=== PATIENT | female | born 1950 | race African-American/Black ===

== ENCOUNTER 2016-09-05 12:57 | Emergency (ER) | payer OTHER ==
[2016-09-05 13:09] VITALS: BMI 21.2
--- NOTE | 2016-09-05 13:34 | PDOC ---
History of Present Illness - General History Source: Patient Exam Limitations: No Limitations - History of Present Illness Initial Comments: 09/05/16 13:50 The patient is a 66-year-old woman with a significant past medical history of asthma and seizure disorder who presents to the emergency department via walk- in for further evaluation of generalized weakness. Patient was in this ED, last night, for evaluation of possible seizure. She admits she did not take her Keppra in order to participate in the festivities. Patient was ultimately noted to be intoxicated (OH level of 252). Patient was noted to withdraw her own IV and was restrained to her stretcher. Patient presents today, as she states she feels generally weak and lightheaded. <Pratibha Ragland - Last Filed: 09/05/16 14:45> <Ez Stevens - Last Filed: 09/05/16 15:59> - General Chief Complaint: Lightheaded Stated Complaint: DIZZINESS Time Seen by Provider: 09/05/16 13:34 Past History <Pratibha Ragland - Last Filed: 09/05/16 14:45> - Past Medical History Asthma: Yes Seizures: Yes - Psycho/Social/Smoking Cessation Hx Anxiety: No Suicidal Ideation: No Smoking Status: No Smoking History: Never smoked Have you smoked in the past 12 months: No Number of Cigarettes Smoked Daily: 0 Hx Alcohol Use: No Drug/Substance Use Hx: No Substance Use Type: None Hx Substance Use Treatment: No <Ez Stevens - Last Filed: 09/05/16 15:59> - Past Medical History Allergies/Adverse Reactions: Allergies Allergy/AdvReac Type Severity Reaction Status Date / Time No Known Allergies Allergy Verified 09/05/16 13:08 Home Medications: Ambulatory Orders Docusate Sodium [Colace -] 100 mg PO BID PRN #60 capsule 07/20/15 Levetiracetam [Keppra -] 500 mg PO BID #60 tablet 07/19/16 Methimazole [Tapazole -] 5 mg PO DAILY #30 tablet 07/29/16 Thiamine HCl [Vitamin B1 -] 100 mg PO BID #60 tablet 07/29/16 Review of Systems - Review of Systems Able to Perform ROS?: Yes Comments:: 09/05/16 13:50 GENERAL/CONSTITUTIONAL: Yes: +Generalized weakness. No fever or chills. HEAD, EYES, EARS, NOSE AND THROAT: No change in vision. No ear pain or discharge. No sore throat. CARDIOVASCULAR: No chest pain or shortness of breath. RESPIRATORY: No cough, wheezing, or hemoptysis. GASTROINTESTINAL: No nausea, vomiting, diarrhea or constipation. GENITOURINARY: No dysuria, frequency, or change in urination. MUSCULOSKELETAL: No joint or muscle swelling or pain. No neck or back pain. SKIN: No rash NEUROLOGIC: Yes: +Lightheadedness. No headache, vertigo, loss of consciousness, or change in strength/sensation. ENDOCRINE: No increased thirst. No abnormal weight change. HEMATOLOGIC/LYMPHATIC: No anemia, easy bleeding, or history of blood clots. ALLERGIC/IMMUNOLOGIC: No hives or skin allergy. <Pratibha Ragland - Last Filed: 09/05/16 14:45> *Physical Exam - Vital Signs Last Vital Signs Temp Pulse Resp BP Pulse Ox 98.6 F 121 H 20 133/81 100 09/05/16 13:05 09/05/16 13:05 09/05/16 13:05 09/05/16 13:09/05/16 13:05 - Physical Exam Comments: 09/05/16 13:50 GENERAL: Awake, alert, and fully oriented, in no acute distress HEAD: No signs of trauma EYES: PERRLA, EOMI, sclera anicteric, conjunctiva clear ENT: Auricles normal inspection, hearing grossly normal, nares patent, oropharynx clear without exudates. NECK: Normal ROM, supple, no lymphadenopathy, JVD, or masses LUNGS: Breath sounds equal, clear to auscultation bilaterally. No wheezes, and no crackles HEART: Regular rate and rhythm, normal S1 and S2, no murmurs, rubs or gallops ABDOMEN: Soft, nontender, normoactive bowel sounds. No guarding, no rebound. No masses EXTREMITIES: Normal range of motion, no edema. No clubbing or cyanosis. No cords, erythema, or tenderness NEUROLOGICAL: Cranial nerves II through XII grossly intact. Normal speech. <Pratibha Ragland - Last Filed: 09/05/16 14:45> - Vital Signs Last Vital Signs Temp Pulse Resp BP Pulse Ox 98.6 F 121 H 20 133/81 100 09/05/16 13:05 09/05/16 13:05 09/05/16 13:05 09/05/16 13:05 09/05/16 13:05 <Ez Stevens - Last Filed: 09/05/16 15:59> ED Treatment Course - LABORATORY CBC & Chemistry Diagram: 09/05/16 14:00 09/05/16 14:00 - RADIOLOGY Radiograph Interpretation: 09/05/16 14:45 EXAM: CT/HEAD CT WITHOUT CONTRAST IMPRESSION: Cranial CT without contrast Clinical information given: seizure No definite interval change is identified in comparison to a previous CT exam of . There is no evidence of intracranial hemorrhage. No obvious mass lesion is identified on noncontrast imaging. There is no extra-axial fluid collection. The ventricles and cisterns appear unremarkable. No infarct is identified within the limitations of CT. <Pratibha Ragland - Last Filed: 09/05/16 14:45> - LABORATORY CBC & Chemistry Diagram: 09/05/16 14:00 09/05/16 14:00 <Ez Stevens - Last Filed: 09/05/16 15:59> *DC/Admit/Observation/Transfer - Attestations Scribe Attestion: 09/05/16 13:51 Documentation prepared by Pratibha Ragland, acting as medical librarian for Ez Stevens MD. <Pratibha Ragland - Last Filed: 09/05/16 14:45> - Discharge Dispostion Admit: No <Ez Stevens - Last Filed: 09/05/16 15:59> Diagnosis at time of Disposition: Seizure disorder, Seizure - Discharge Dispostion Disposition: HOME Condition at time of disposition: Improved - Referrals Referrals: Claudia Maya MD [Primary Care Provider] -
[2016-09-05 14:12] LABS: BASOPHIL 0.2 % (0-2.0); EOSINOPHIL 0.9 % (0-4.5); MCH 23.9 pg (25.7-33.7); MCHC 31.9 g/dl (32.0-36.0); MEAN CELL VOLUME 74.8 fl (80-96); NEUTROPHILS 56.3 % (42.8-82.8); PLATELET COUNT 238 K/MM3 (134-434); RDW 15.7 % (11.6-15.6); WHITE BLOOD COUNT 6.1 K/mm3 (4.0-10.0)
[2016-09-05 14:13] LABS: URINE APPEARANCE CLEAR; URINE BILIRUBIN NEGATIVE (NEGATIVE); URINE BLOOD NEGATIVE (NEGATIVE); URINE COLOR LTYELLOW; URINE GLUCOSE (UA) NEGATIVE (NEGATIVE); URINE KETONE 1+ (NEGATIVE); URINE LEUK ESTERASE NEGATIVE (NEGATIVE); URINE NITRITE NEGATIVE (NEGATIVE); URINE PROTEIN NEGATIVE (NEGATIVE); URINE UROBILINOGEN NEGATIVE E.U./dl (0.2-1.0)
[2016-09-05 14:25] LABS: URINE MARIJUANA THC NEGATIVE ng/ml (CUTOFF=50)
[2016-09-05 14:35] LABS: ALBUMIN 3.1 g/dl (3.4-5.0); ANION GAP 10 (8-16); BILIRUBIN,TOTAL 0.5 mg/dL (0.2-1.0); CALCIUM 8.8 mg/dL (8.5-10.1); CO2 24 mmol/L (21-32); CREATININE 0.5 mg/dL (0.55-1.02); GLUCOSE,RANDOM 69 mg/dL (74-106); SGOT/AST 60 U/L (15-37); SGPT/ALT 46 U/L (12-78); TOT PROT 7.2 g/dl (6.4-8.2)
[2016-09-05 14:36] LABS: ALK PHOS 315 U/L (45-117)
[2016-09-05] MEDS ORDERED: levETIRAcetam 500 MG TABLET (FP) PO ONE (15:58)
[2016-09-05 16:19] VITALS: BP 130/70; PULSE 87; TEMP 98.3
--- NOTE | 2016-09-08 16:01 | EKG ---
Test Reason : Blood Pressure : / mmHG Vent. Rate : 113 BPM Atrial Rate : 113 BPM P-R Int : 116 ms QRS Dur : 074 ms QT Int : 330 ms P-R-T Axes : 034 055 050 degrees QTc Int : 452 ms SINUS TACHYCARDIA MINIMAL VOLTAGE CRITERIA FOR LVH, MAY BE NORMAL VARIANT NONSPECIFIC T WAVE ABNORMALITY ABNORMAL ECG WHEN COMPARED WITH ECG OF 14-JUL-2016 09:51, NONSPECIFIC T WAVE ABNORMALITY NOW EVIDENT IN INFERIOR LEADS Confirmed by YESSICA BEAN, SPIKE ([id number]) on 09/08/2016 4:01:48 PM Referred By: Confirmed By:SPIKE JUAN MD
== END 2016-09-05 16:19 | disposition home or self-care (01) ==
LOC: JER 12:57
DX: G40.909 Epilepsy, unspecified, not intractable, without status epilepticus (principal); J45.909 Unspecified asthma, uncomplicated; Z91.14 Patient's other noncompliance with medication regimen
CPT/HCPCS: 36415; 70450-TC; 80053; 81003; 82550; 85025; 93005; 93010; 99283-25; G0479